=== PATIENT | female | born 1985 | race Caucasian/White ===

== ENCOUNTER 2019-09-16 13:27 | Emergency (ER) | payer SELFPAY ==
[2019-09-16 14:12] LABS: Bilirubin Negative (Negative); Blood, Urine Negative (Negative); Glucose, Urine (Dipstick) Negative (Negative); Leukocyte Small (Negative); Nitrite Negative (Negative); Protein, Urine (Dipstick) Negative (Neg-Trace); Urobilinogen 0.2 mg/dL (Less than 2)
[2019-09-16 14:17] LABS: Clarity Clear (Clear)
[2019-09-16 14:18] LABS: #Eosinphils 0.1 thou/uL (0.0-0.7); #Lymphocytes 1.6 thou/uL (1.20-3.40); #Monocytes 0.5 thou/uL (0.11-0.59); #Neutrophils 6.4 thou/uL (1.40-6.50); %Basophils 0.6 % (0.0-1.0); %Eosinophils 1.3 % (0.0-10.0); %Lymphocytes 17.9 % (21.0-51.0); %Monocytes 6.2 % (0.0-10.0); %Neutrophils 74.1 % (42.0-75.0); Hemoglobin 14.4 g/dL (12.0-16.0); Mean Corpuscular HGB CONC 32.9 g/dL (32.0-36.0); Mean Corpuscular Hemoglobin 28.1 pg (27.0-31.0); Mean Corpuscular Volume 85.3 fL (78.0-98.0); Mean Platelet Volume 8.3 fL (7.4-10.4); Platelet Count 210 thou/uL (130-400); Red Blood Cell (RBC) Count 5.14 mill/uL (4.20-5.40); White Blood Cell (WBC) Count 8.6 thou/uL (4.8-10.8)
[2019-09-16 14:23] LABS: RBC/HPF 0-3 HPF (0-3); Squamous Epithelial 0-3 HPF (0-3); WBC/HPF 0-3 HPF (0-3)
[2019-09-16 14:24] LABS: Bacteria/HPF Rare-Few HPF (None Seen)
[2019-09-16 14:41] LABS: ALT (SGPT) 9 U/L (8-55); AST (SGOT) 14 U/L (5-34); Albumin 4.5 g/dL (3.5-5.0); Alkaline Phosphatase 76 U/L (40-110); Anion Gap 11 mmol/L (10-20); BUN (Urea Nitrogen) 4 mg/dL (7.0-18.7); Bilirubin, Total 0.5 mg/dL (0.2-1.2); Calc. Creatinine Clearance 0 mL/min (70-130); Calcium 9.5 mg/dL (7.8-10.44); Carbon Dioxide 27 mmol/L (22-29); Chloride 105 mmol/L (98-107); Estimated GFR-MDRD 79; Globulin 2.6 g/dL (2.4-3.5); Glucose 105 mg/dL (70-105); Lipase 11 U/L (8-78); Potassium 3.5 mmol/L (3.5-5.1); Protein, Total 7.1 g/dL (6.0-8.3); Sodium 139 mmol/L (136-145)
[2019-09-16] MEDS ORDERED: Lidocaine Viscous Sol 2% 15 ml UD Cup ONE (15:46)
[2019-09-16] MEDS ORDERED: Mag-Al 1200 mg/1200 mg/30 ML UDCUP ONE (15:46)
--- NOTE | 2019-09-16 16:13 | ULT ---
Gallbladder ultrasound: Multiple grayscale images of right upper quadrant obtained according to protocol. INDICATION: Pain FINDINGS: Liver: Coarsened echotexture of the liver, with a length of 18 cm demonstrated Gallbladder: There is shadowing cholelithiasis Gallbladder wall: Normal. Cervantes's Sign: Negative Common bile duct is normal. Ascites: None IMPRESSION: Cholelithiasis. Coarsened echotexture of liver. This could relate to hepatic steatosis, or hepatocellular disease. Re commend correlation with liver function enzymes.
== END 2019-09-16 17:40 | disposition home or self-care (01) ==
LOC: ERS 13:27
DX: K80.20 Calculus of gallbladder without cholecystitis without obstruction (principal); Z87.891 Personal history of nicotine dependence
CPT/HCPCS: 36415; 76705; 80053; 81003; 81015; 83690; 85025

== ENCOUNTER 2019-11-11 12:30 | Day surgery (SDC) | payer SELFPAY ==
[~2019-11-11 12:30] MED LIST: Dexamethasone 20 MG/5 ML VIAL ONE; Glycopyrrolate 0.2 MG/ML 5 ML SYRINGE ONE; Lidocaine 1% PF 5 ML VIAL ONE; Ondansetron PF 4 MG/2 ML Vial ONE; PROPOFOL 200 MG/20 ML VIAL ONE; Rocuronium Bromide 10 MG/ML (10ML VIAL) ONE
[2019-11-11] MEDS ORDERED: Promethazine HCl 25 MG/ML VIAL ONE ×3 (13:07→21:39)
[2019-11-11] MEDS ORDERED: Fentanyl 100 MCG/2 ML VIAL ONE ×2 (13:18→20:28)
[2019-11-11] MEDS ORDERED: Ketorolac Tromethamine 30 MG/ML VIAL ONE ×3 (13:18→22:03)
[2019-11-11 13:24] LABS: #Eosinphils 0.1 thou/uL (0.0-0.7); #Lymphocytes 2.2 thou/uL (1.20-3.40); #Monocytes 0.4 thou/uL (0.11-0.59); #Neutrophils 5.2 thou/uL (1.40-6.50); %Basophils 0.3 % (0.0-1.0); %Eosinophils 1.8 % (0.0-10.0); %Lymphocytes 27.2 % (21.0-51.0); %Monocytes 5.3 % (0.0-10.0); %Neutrophils 65.4 % (42.0-75.0); Hemoglobin 15.3 g/dL (12.0-16.0); Mean Corpuscular HGB CONC 33.2 g/dL (32.0-36.0); Mean Corpuscular Hemoglobin 28.6 pg (27.0-31.0); Mean Corpuscular Volume 86.2 fL (78.0-98.0); Mean Platelet Volume 7.9 fL (7.4-10.4); Platelet Count 204 thou/uL (130-400); RBC Distribution Width 12.7 % (11.5-14.5); Red Blood Cell (RBC) Count 5.35 mill/uL (4.20-5.40)
[2019-11-11 13:35] LABS: BHCG - Serum Negative (NEGATIVE); Pregs Control Background? CLEAR/WHITE (CLR/WHITE); Pregs Control Bar Appear? YES (CONTROL BAR)
[2019-11-11 13:47] LABS: ALT (SGPT) Less than 7 U/L (8-55); AST (SGOT) 11 U/L (5-34); Albumin 4.5 g/dL (3.5-5.0); Alkaline Phosphatase 71 U/L (40-110); Anion Gap 14 mmol/L (10-20); BUN (Urea Nitrogen) 6 mg/dL (7.0-18.7); Bilirubin, Total 0.4 mg/dL (0.2-1.2); Calc. Creatinine Clearance 0 mL/min (70-130); Calcium 9.4 mg/dL (7.8-10.44); Carbon Dioxide 22 mmol/L (22-29); Chloride 108 mmol/L (98-107); Estimated GFR-MDRD 80; Globulin 2.5 g/dL (2.4-3.5); Glucose 141 mg/dL (70-105); Lipase 19 U/L (8-78); Potassium 3.8 mmol/L (3.5-5.1); Sodium 140 mmol/L (136-145)
[2019-11-11] MEDS ORDERED: Levofloxacin 500 mg/D5W 100 ml Premix Bag ONE (14:48)
[2019-11-11] MEDS ORDERED: Ondansetron PF 4 MG/2 ML Vial ONE ×2 (17:26→21:19)
--- NOTE | 2019-11-11 18:34 | HP ---
HISTORY OF PRESENT ILLNESS: A 34-year-old female with ongoing right upper quadrant pain with back radiation, nausea and vomiting for the past 6 months, has been to this hospital emergency room, [facility], visits this hospital emergency room again and evaluated by Dr. Kaminski. The patient has had ultrasound recently demonstrating gallstones, normal bile duct caliber, normal liver function tests, and they were normal again on this visit. She has intractable pain, cannot tolerate food or liquids and has a positive Cervantes sign. ALLERGIES: MORPHINE AND IODINE. TOBACCO: None. ALCOHOL: None. PAST SURGICAL HISTORY: C-sections. PAST MEDICAL HISTORY: Noncontributory. The patient is . Her [id number] accompanies her. REVIEW OF SYSTEMS: Ten-point noncontributory. PHYSICAL EXAMINATION: VITAL SIGNS: Weight 127 kg, blood pressure 120/80, pulse 62, respirations 16, temperature 97 degrees. HEAD, EARS EYES, NOSE AND THROAT: Unremarkable. LUNGS: Clear to auscultation. CARDIAC: Regular rate and rhythm without murmur or gallop. ABDOMEN: Soft. Tenderness in right upper quadrant. Positive Cervantes's. Obese. EXTREMITIES: Unremarkable. ASSESSMENT: Cholecystitis and cholelithiasis. PLAN: Laparoscopic video cholecystectomy. Risks and benefits discussed. She consents. Job ID: [id number]
[2019-11-11] MEDS ORDERED: Bupivacaine PF 0.5% 30 ML VIAL ONE (18:44)
[2019-11-11] MEDS ORDERED: Midazolam HCl 2 mg/2 ml Vial ONE (19:08)
[2019-11-11] MEDS ORDERED: Fentanyl 250 MCG/5 ML VIAL ONE (19:08)
[2019-11-11] MEDS ORDERED: Lidocaine 1% w/Epinephrine 1:100K 20 ML VIAL ONE (19:46)
[2019-11-11] MEDS ORDERED: HYDROmorphone 2 MG/ML VIAL SLOW IVP PRN (20:29)
[2019-11-11] MEDS ORDERED: Promethazine HCl 25 MG/ML VIAL IM PRN (20:29)
[2019-11-11] MEDS ORDERED: Ondansetron HCl/PF 4 MG/2 ML Vial IVP PRN (20:29)
[2019-11-11] MEDS ORDERED: Promethazine HCl 25 MG/ML VIAL SLOW IVP PRN (20:29)
[2019-11-11] MEDS ORDERED: diphenhydrAMINE 50 MG/ML VIAL ONE (21:56)
[2019-11-11] MEDS ORDERED: Metoclopramide HCl 10 MG/2 ML VIAL ONE (22:33)
[2019-11-11] MEDS ORDERED: Acetaminophen 500 MG TAB PO PRN (23:39)
[2019-11-11] MEDS ORDERED: traMADol HCl 50 MG TAB PO PRN ×2 (23:39→23:40)
[2019-11-11] MEDS ORDERED: Ondansetron ODT 4 MG TAB PO PRN (23:41)
[2019-11-12] MEDS: Acetaminophen 1,000 MG in Premix Bag 1 BAG IVPB PRN ×2 (00:12→05:56)
[2019-11-12] MEDS: Sodium Chloride 0.9% 1,000 ML IV SCH ×4 (00:12→22:00)
[2019-11-12 00:36] VITALS: BMI 36.1
[2019-11-12] MEDS ORDERED: Ondansetron ODT 4 MG TAB PO PRN (00:43)
[2019-11-12] MEDS: Ondansetron PF 4 MG/2 ML Vial SLOW IVP PRN ×2 (00:56→05:56)
[2019-11-12] MEDS ORDERED: Promethazine HCl 25 MG SUPP PR PRN (01:20)
[2019-11-12] MEDS ORDERED: Promethazine 25 MG TAB PO PRN (01:20)
[2019-11-12] MEDS: Promethazine HCl 25 MG/ML VIAL IM PRN ×3 (01:42→17:04)
--- NOTE | 2019-11-12 02:10 | OP ---
DATE OF PROCEDURE: 11/11/2019 PREOPERATIVE DIAGNOSES: Chronic cholecystitis, cholelithiasis, acute cholecystitis, and obesity. POSTOPERATIVE DIAGNOSES: Chronic cholecystitis, cholelithiasis, acute cholecystitis, and obesity. PROCEDURE PERFORMED: Laparoscopic video cholecystectomy. ANESTHESIA: General, local 0.5% Marcaine with epinephrine 30 mL. DESCRIPTION OF PROCEDURE: Patient was taken to the operating room, where under general anesthesia, abdomen was prepared with ChloraPrep and draped in routine fashion local anesthetic was infiltrated in the skin and subcutaneous tissue at each port site. Supraumbilical incision was made. Pneumoperitoneum to 15 mmHg obtained with a Veress needle, replaced with a 5-port laparoscope inserted. Right subxiphoid incision was made and 11 port placed, right subcostal incision was made at midclavicular entrance line and 5-port placed. Liver appeared to be normal. Gallbladder was acutely inflamed. Omental adhesions taken down with the cautery. Fundus was grasped at the cephalad. Infundibulum was grasped and retracted laterally. Cystic artery and duct dissected free. Critical view obtained. Cystic artery and duct double clipped proximally, divided, gallbladder dissected free from liver bed obtaining good hemostasis prior to division of the final peritoneal attachments. Good hemostasis obtained with cautery. Gallbladder and contents removed. Nik was placed in the liver bed. Hemostasis noted. Irrigant and pneumoperitoneum evacuated. All this was removed. All skin incisions were approximated with interrupted subdermal 4-0 Monocryl and [place] glue applied. Job ID: [id number]
[2019-11-12] MEDS: Metoclopramide HCl 10 MG/2 ML VIAL IVP PRN ×2 (04:03→10:24)
[2019-11-12] MEDS: Ketorolac Tromethamine 30 MG/ML VIAL IVP PRN ×3 (04:03→20:44)
[2019-11-12 05:53] LABS: ALT (SGPT) 19 U/L (8-55); AST (SGOT) 42 U/L (5-34); Albumin 3.7 g/dL (3.5-5.0); Alkaline Phosphatase 62 U/L (40-110); Anion Gap 13 mmol/L (10-20); BUN (Urea Nitrogen) 5 mg/dL (7.0-18.7); Bilirubin, Total 0.6 mg/dL (0.2-1.2); Calc. Creatinine Clearance 193 mL/min (70-130); Calcium 8.5 mg/dL (7.8-10.44); Carbon Dioxide 16 mmol/L (22-29); Chloride 109 mmol/L (98-107); Estimated GFR-MDRD 87; Globulin 2.6 g/dL (2.4-3.5); Glucose 142 mg/dL (70-105); Lipase Less than 4 U/L (8-78); Potassium 4.1 mmol/L (3.5-5.1); Protein, Total 6.3 g/dL (6.0-8.3); Sodium 134 mmol/L (136-145)
[2019-11-12 06:13] LABS: #Lymphocytes 0.6 thou/uL (1.20-3.40); #Monocytes 0.7 thou/uL (0.11-0.59); #Neutrophils 14.6 thou/uL (1.40-6.50); %Basophils 0.1 % (0.0-1.0); %Eosinophils 0.1 % (0.0-10.0); %Lymphocytes 3.6 % (21.0-51.0); %Monocytes 4.1 % (0.0-10.0); Hemoglobin 13.8 g/dL (12.0-16.0); Mean Corpuscular Hemoglobin 26.5 pg (27.0-31.0); Mean Corpuscular Volume 88.2 fL (78.0-98.0); Mean Platelet Volume 9.6 fL (7.4-10.4); Platelet Count 108 thou/uL (130-400); Platelet Morphology Comment Appears Decreased; RBC Distribution Width 12.7 % (11.5-14.5); White Blood Cell (WBC) Count 15.9 thou/uL (4.8-10.8)
[2019-11-12] MEDS ORDERED: Mag-Al 1200 mg/1200 mg/30 ML UDCUP PO PRN (08:18)
[2019-11-12] MEDS: Fentanyl 100 MCG/2 ML VIAL SLOW IVP PRN ×2 (09:23→15:28)
[2019-11-12] MEDS ORDERED: diphenhydrAMINE 50 MG/ML VIAL IVP PRN (10:33)
[2019-11-12] MEDS ORDERED: diphenhydrAMINE 50 MG/ML VIAL IVP SCH (10:45)
[2019-11-12] MEDS ORDERED: Scopolamine 1.5 mg/72 hour Patch TD SCH (10:45)
[2019-11-12] MEDS ORDERED: Bisacodyl 10 MG SUPP PR PRN (16:09)
--- NOTE | 2019-11-12 17:16 | PRG ---
DATE OF SERVICE: 11/12/2019 SUBJECTIVE: Stefania Rodríguez is doing well today. She was kept not because of intractable nausea and vomiting. She has still had problems with that this morning, although was somewhat improved. She is ready to try her liquids. She has been given Phenergan, Reglan, Zofran, Benadryl, and scopolamine patch. This morning, her white count is 15, hemoglobin 13. Basic metabolic profile is normal. Liver function tests are normal. She still complains of abdominal pain. OBJECTIVE: VITAL SIGNS: Temperature 98.9, pulse 67, blood pressure 134/88. LUNGS: Clear to auscultation. CARDIAC: Regular rate and rhythm without murmur or gallop. ABDOMEN: Postoperative tenderness, surgical wounds, trocar sites look good. ASSESSMENT AND PLAN: Post cholecystectomy, nausea, vomiting. Liver function tests are normal. There are no signs of cholecystectomy complications. Continue observation today. Hopefully, she can be discharged home tomorrow. Job ID: [id number]
[2019-11-12] MEDS ORDERED: Enoxaparin Sodium 40 MG/0.4 ML SYRINGE SC SCH (21:00)
[2019-11-13 05:47] LABS: #Lymphocytes 2.7 thou/uL (1.20-3.40); #Monocytes 0.7 thou/uL (0.11-0.59); #Neutrophils 4.7 thou/uL (1.40-6.50); %Basophils 0.1 % (0.0-1.0); %Eosinophils 0.4 % (0.0-10.0); %Lymphocytes 33.9 % (21.0-51.0); %Neutrophils 57.5 % (42.0-75.0); Mean Corpuscular HGB CONC 31.9 g/dL (32.0-36.0); Mean Corpuscular Hemoglobin 27.9 pg (27.0-31.0); Mean Corpuscular Volume 87.4 fL (78.0-98.0); Mean Platelet Volume 8.6 fL (7.4-10.4); Platelet Count 167 thou/uL (130-400); RBC Distribution Width 12.8 % (11.5-14.5); Red Blood Cell (RBC) Count 3.95 mill/uL (4.20-5.40); White Blood Cell (WBC) Count 8.1 thou/uL (4.8-10.8)
[2019-11-13 05:52] LABS: ALT (SGPT) 15 U/L (8-55); AST (SGOT) 22 U/L (5-34); Albumin 3.2 g/dL (3.5-5.0); Alkaline Phosphatase 43 U/L (40-110); Anion Gap 8 mmol/L (10-20); BUN (Urea Nitrogen) 6 mg/dL (7.0-18.7); Bilirubin, Total 0.4 mg/dL (0.2-1.2); Calc. Creatinine Clearance 186 mL/min (70-130); Calcium 8.2 mg/dL (7.8-10.44); Carbon Dioxide 25 mmol/L (22-29); Chloride 109 mmol/L (98-107); Estimated GFR-MDRD 83; Glucose 87 mg/dL (70-105); Potassium 3.3 mmol/L (3.5-5.1); Protein, Total 5.2 g/dL (6.0-8.3); Sodium 139 mmol/L (136-145)
--- NOTE | 2019-11-13 13:27 | DIS ---
DATE OF ADMISSION: 11/11/2019 DATE OF DISCHARGE: 11/13/2019 DIAGNOSES: 1. Cholecystitis. 2. Cholelithiasis. 3. Obesity. 4. Postoperative nausea and vomiting requiring postoperative admission. DISCHARGE INSTRUCTIONS: Diet as tolerated. Lifting as tolerated. Follow up in the office p.r.n. problems. No diet restrictions. No activity restriction. Shower and bathe p.r.n. Tylenol, Motrin, Ultram p.r.n. pain. Ultram prescription given, #25, one refill. HISTORY: This is a 34-year-old female, who has been in [facility] recently, and after that, [facility], and now returned to [facility]. All times, ultrasounds revealing cholelithiasis, normal bile duct caliber, normal liver function test. She is having ongoing pain, cannot tolerate liquids, and was kept in the hospital undergoing laparoscopic cholecystectomy to be discharged home as outpatient and intractable nausea and vomiting, requiring hospitalization 2 days postoperatively to resolve this. By the time of this dictation, she is doing well, tolerating her diet. Liver function tests and hemoglobin remained normal. She is released at this time to follow up with me as needed. Diet and activity as tolerated. Job ID: [id number]
[2019-11-13 15:12] VITALS: BP 128/89; TEMP 97.9
== END 2019-11-13 14:28 | disposition home or self-care (01) ==
LOC: ERS 12:30 → SDC/OP 18:03 → SURG A 23:29 → SDC/OP 11-13 14:28
PROVIDERS: ATTEND Specialist
PROC: 0FT44ZZ Resection of Gallbladder, Percutaneous Endoscopic Approach (ICD-10-PCS; principal; 2019-11-11)
DX: K80.12 Calculus of gallbladder with acute and chronic cholecystitis without obstruction (principal); K82.8 Other specified diseases of gallbladder; K91.89 Other postprocedural complications and disorders of digestive system; E66.9 Obesity, unspecified; Z68.36 Body mass index [BMI] 36.0-36.9, adult; Z88.5 Allergy status to narcotic agent; Z91.013 Allergy to seafood; Z91.041 Radiographic dye allergy status
CPT/HCPCS: 36415; 80053; 83690; 84703; 85025; 88304; 96361; 96365; 96367; 96375; J0131; J1100; J1200; J1650; J1885; J1956; J2001; J2250; J2405; J2550; J2704; J2765; J3010; S0020

== ENCOUNTER 2020-01-28 12:28 | Emergency (ER) | payer SELFPAY ==
--- NOTE | 2020-01-28 13:38 | RAD ---
PA AND LATERAL VIEWS CHEST: Date: 01/28/2020 HISTORY: Cough. FINDINGS: The heart size is normal. The lungs are expanded without lobar consolidation, pneumothoraces, or pleu ral effusions. No acute osseous abnormalities are seen. IMPRESSION: No radiographic evidence of acute cardiopulmonary process. POS: [facility]
[2020-01-28] MEDS ORDERED: Ondansetron ODT 4 MG TAB ONE (14:10)
[2020-01-28] MEDS ORDERED: Acetaminophen 500 MG TAB ONE (14:20)
== END 2020-01-28 16:08 | disposition home or self-care (01) ==
LOC: ERS 12:28
DX: J06.9 Acute upper respiratory infection, unspecified (principal); R11.0 Nausea; Z87.891 Personal history of nicotine dependence
CPT/HCPCS: 71046; 87633; 87804; Q0162

== ENCOUNTER 2020-02-01 04:30 | Emergency (ER) | payer SELFPAY ==
[2020-02-01] MEDS ORDERED: Metoclopramide HCl 10 MG/2 ML VIAL ONE (05:07)
== END 2020-02-01 06:04 | disposition home or self-care (01) ==
LOC: ERS 04:30
DX: J11.1 Influenza due to unidentified influenza virus with other respiratory manifestations (principal); R11.2 Nausea with vomiting, unspecified; Z87.891 Personal history of nicotine dependence
CPT/HCPCS: 96372; 99284; J2765

== ENCOUNTER 2020-02-01 22:33 | Inpatient (IN) | payer SELFPAY ==
--- NOTE | 2020-02-01 23:50 | HP ---
TIME: 2254 hours. CHIEF COMPLAINT: This is a patient who I just spoke with Dr. Francisco in the emergency room at [facility] ER, whom he is placing for direct admission as a five week patient with nausea and vomiting. HISTORY OF PRESENT ILLNESS: This is a 34-year-old, G3, P2 with a history of 2 previous C-sections, who by ultrasound today, according to the ER physician at [facility], is five weeks and 4 days by ultrasound. She presented there for nausea and vomiting. She states that she was given recently a prescription for Reglan suppositories, but she has not been able to get them filled, so she presented again to [facility] with the same complaint of nausea and vomiting. She denies any vaginal bleeding or other issues. REVIEW OF SYSTEMS: Per the ER physician, she had no other review of systems. (Note; I discussed this case with Dr. Francisco after evaluating her previous note in [facility] here in [facility], from 01/28/2020. On 01/28/2020, this patient tested positive for influenza A. The rapid flu swab was negative, but the respiratory panel was positive for influenza A. I was not told this at the initial check out/Transfer Center call with Dr. Francisco. I did call him back and asked him about respiratory symptoms. There is a note from 01/28/2020 where it states that she was awaiting COVID testing, but this was not back yet. I was not told this initially, but I did call back the ER physician and reviewed this vital part of the history with him. This was important since we will have to place the patient in isolation due to her recent flu diagnosis). PAST MEDICAL HISTORY: Noncontributory. PAST OB HISTORY: She is G3, P2 with 2 previous C-sections. ALLERGIES: ARE TO IODINE, MORPHINE, AND SHELLFISH. PHYSICAL EXAMINATION: According to the ER physician (as the patient is not yet here), she is afebrile and normotensive. She is in no acute distress and there is no vaginal bleeding by his report. DIAGNOSTIC STUDIES: Ultrasound reveals a of five weeks and 4 days by ultrasound today. Urine shows moderate ketones. Complete metabolic profile shows normal liver function tests and a creatinine of 1.0. ASSESSMENT: This is a 34-year-old multigravida, who is at five weeks and 4 days by ultrasound with possible nausea, vomiting of , recent diagnosis of the flu just four days ago (influenza A). The issue with the flu was not discussed with me originally by the ER physician, but I did call that provider back and discussed the case. We will put her in respiratory precautions just to be safe. I have also requested this from the transfer center. It is important to note that she states that she had a COVID test as well, but that does not seem to be back. PLAN: 1. We will admit the patient for IV hydration. 2. I have ordered vitamin B6 and Phenergan. 3. I did not order Reglan at this time to avoid the Phenergan/Reglan interaction, but we may add Reglan if necessary if the nausea and vomiting are not better by the vitamin B6 and Phenergan. 4. The patient has not yet arrived here, but I am doing the H and P based on the information provided to me by Dr. Francisco at [facility]. I will evaluate the patient when she gets here. This H and P are being done before based on the information provided to me as a preparation for her arrival. 5. This patient was previously seen by Dr. Banegas, but according to Dr. Banegas, she has not yet established care for this , so we will assume care for now. Job ID: [id number]
[2020-02-02 00:11] VITALS: BMI 38.0
[2020-02-02] MEDS: Lactated Ringer's 1,000 ML IV SCH ×3 (00:30→15:32)
--- NOTE | 2020-02-02 00:42 | PDOC.EVN ---
Event Note - Event Note Event Note: Patient now in Bed 329 I have seen the patient at bedside and care reviewed. She states her was COVID negative. Continue with plan as per H&P
[2020-02-02] MEDS ORDERED: Metoclopramide HCl 10 MG/2 ML VIAL IVP SCH (06:00)
--- NOTE | 2020-02-02 06:55 | PDOC.EVN ---
Event Note - Event Note Event Note: HD 1 Admitted late last PM DX: 5 weeks OB, N/V...recent Influenza A (5 days ago) S. I walked in the room but the patient was sleeping, so I asked Lianet, her RN , how she was doing. RN states feels better, and the patient was able to hold down ice chips and water. O. Systolic BPs noted at 140s x 2, but last one was in the 120s...follow.Afebrile with TMax 99 Labs at [facility]...no labs here as they were normal there. A/P: 5 weeks OB, N/V...previously tested for COVID (results pending) but was DX with Influenza A on full respiratory panel. Plan: continue IVFs 2. Vit B6 3. Phenergan 4. Reg diet challange
[2020-02-02] MEDS: pyridOXINE 50 MG (B6) TAB PO SCH ×2 (09:20→20:44)
[2020-02-02] MEDS: Famotidine 20 MG TAB PO SCH ×2 (09:20→20:44)
[2020-02-02] MEDS: Promethazine HCl 25 MG/ML VIAL IM/IV PRN ×2 (09:27→15:32)
[2020-02-02] MEDS ORDERED: Doxylamine 25 MG TAB PO PRN (17:36)
[2020-02-02] MEDS ORDERED: FLU VACC QS2019-20(6MOS UP)/PF 60 MCG/0.5 ML SYRINGE IM ONE (21:00)
[2020-02-02] MEDS ORDERED: Doxylamine 25 MG TAB PO SCH ×2 (21:00)
[2020-02-03] MEDS: Lactated Ringer's 1,000 ML IV SCH ×2 (00:42→08:42)
[2020-02-03] MEDS: Promethazine HCl 25 MG/ML VIAL IM/IV PRN (01:57)
[2020-02-03 07:31] VITALS: BP 109/57; TEMP 98.2
--- NOTE | 2020-02-03 07:38 | PDOC.BPN ---
- Brief Progress Note Patient doing well this morning. Has tolerated PO, both solids and liquids. Cleared for d/c home today and told to follow up with Dr. Banegas to establish care. Given Rx for pepcid, pyridoxine, and phenergan.
[2020-02-03] MEDS: Famotidine 20 MG TAB PO SCH (08:43)
[2020-02-03] MEDS: pyridOXINE 50 MG (B6) TAB PO SCH (08:43)
[2020-02-03] MEDS ORDERED: Doxylamine 25 MG TAB PO SCH (09:00)
== END 2020-02-03 10:30 | disposition home or self-care (01) | DRG 833 ==
LOC: 3SW 23:49 → OBSVTOIN 23:49
PROVIDERS: ADMIT Obstetrics & Gynecology; ATTEND Obstetrics & Gynecology
DX: O26.891 Other specified pregnancy related conditions, first trimester (principal); R11.2 Nausea with vomiting, unspecified; Z91.041 Radiographic dye allergy status; Z88.5 Allergy status to narcotic agent; Z91.013 Allergy to seafood
CPT/HCPCS: J2550

== ENCOUNTER 2020-02-04 10:42 | Emergency (ER) | payer SELFPAY ==
[2020-02-04 11:34] LABS: #Eosinphils 0.1 thou/uL (0.0-0.7); #Lymphocytes 1.7 thou/uL (1.20-3.40); #Monocytes 0.4 thou/uL (0.11-0.59); #Neutrophils 3.4 thou/uL (1.40-6.50); %Basophils 0.4 % (0.0-1.0); %Eosinophils 1.4 % (0.0-10.0); %Lymphocytes 30.7 % (21.0-51.0); %Monocytes 6.6 % (0.0-10.0); Hemoglobin 13.5 g/dL (12.0-16.0); Mean Corpuscular HGB CONC 32.8 g/dL (32.0-36.0); Mean Corpuscular Hemoglobin 27.8 pg (27.0-31.0); Mean Corpuscular Volume 84.7 fL (78.0-98.0); Mean Platelet Volume 8.5 fL (7.4-10.4); Platelet Count 134 thou/uL (130-400); RBC Distribution Width 12.2 % (11.5-14.5); Red Blood Cell (RBC) Count 4.84 mill/uL (4.20-5.40); White Blood Cell (WBC) Count 5.6 thou/uL (4.8-10.8)
[2020-02-04 11:47] LABS: Anion Gap 11 mmol/L (10-20); BUN (Urea Nitrogen) 5 mg/dL (7.0-18.7); Calc. Creatinine Clearance 0 mL/min (70-130); Calcium 8.7 mg/dL (7.8-10.44); Carbon Dioxide 28 mmol/L (22-29); Chloride 100 mmol/L (98-107); Estimated GFR-MDRD Greater than 90; Glucose 87 mg/dL (70-105); Potassium 3.1 mmol/L (3.5-5.1); Sodium 136 mmol/L (136-145)
[2020-02-04] MEDS ORDERED: Potassium Chloride 20 MEQ TAB ONE (12:21)
--- NOTE | 2020-02-04 12:29 | ULT ---
Pelvic sonogram transabdominal and transvaginal imaging with duplex evaluation HISTORY: Vaginal bleeding. FINDINGS: Urinary bladder is decompressed. Uterus has a heterogeneous echotexture and is 8.1 cm lengt h. Endometrium is 1.0 cm. Centrally within the cervix is an oval cystic structure measuring 1.1 cm length by 0.6 cm width. When measured as a gestational sac, it correlates with 5 weeks 3 days gestati onal age. No internal content evident. No free fluid in the pelvis. Dominant follicle of the left ovary measures up to 2.7 cm. Right ovary has normal appearance. Good co angela and spectral Doppler flow within each ovary. IMPRESSION: Normal intrauterine not seen. Cystic structure within the cervix may represent remnant of a gestational sac, indicating a spontaneous in progress.
== END 2020-02-04 12:36 | disposition home or self-care (01) ==
LOC: ERS 10:42
DX: O20.0 Threatened abortion (principal); Z87.891 Personal history of nicotine dependence; Z3A.09 9 weeks gestation of pregnancy
CPT/HCPCS: 36415; 76856; 80048; 84702; 85025

== ENCOUNTER 2020-04-10 20:33 | Inpatient (IN) | payer BC, SELFPAY ==
[2020-04-10 21:21] LABS: #Lymphocytes 0.7 thou/uL (1.20-3.40); #Monocytes 0.7 thou/uL (0.11-0.59); #Neutrophils 10.3 thou/uL (1.40-6.50); %Basophils 0.1 % (0.0-1.0); %Eosinophils 0.3 % (0.0-10.0); %Lymphocytes 5.5 % (21.0-51.0); %Monocytes 5.6 % (0.0-10.0); %Neutrophils 88.6 % (42.0-75.0); Hemoglobin 14.7 g/dL (12.0-16.0); Mean Corpuscular HGB CONC 32.8 g/dL (32.0-36.0); Mean Corpuscular Volume 88.4 fL (78.0-98.0); Mean Platelet Volume 8.7 fL (7.4-10.4); Platelet Count 178 thou/uL (130-400); RBC Distribution Width 12.5 % (11.5-14.5); Red Blood Cell (RBC) Count 5.06 mill/uL (4.20-5.40); White Blood Cell (WBC) Count 11.7 thou/uL (4.8-10.8)
[2020-04-10 21:21] LABS: Bacteria/HPF 4+ HPF (None Seen); Bilirubin Negative (Negative); Blood, Urine 2+ (Negative); Clarity Extra Turbid (Clear); Glucose, Urine (Dipstick) Normal (Negative); Leukocyte 500 Leu/uL (Negative); Mucous/LPF 1+ LPF (<2+); Nitrite 2+ (Negative); Pregnancy Test - Urine (BHCG) Negative (Negative); Pregu Control Background? CLEAR/WHITE (CLR/WHITE); Pregu Control Bar Appear? YES (CONTROL BAR); Protein, Urine (Dipstick) 100 mg/dL (Neg-Trace); RBC/HPF 21-50 HPF (0-3); Renal Epithelial 0-3 HPF (None Seen); Specific Gravity 1.015 (1.002-1.036); Urobilinogen Normal mg/dL (Less than 2); WBC/HPF Greater than 50 HPF (0-3)
[2020-04-10 21:44] LABS: ALT (SGPT) 7 U/L (8-55); AST (SGOT) 13 U/L (5-34); Albumin 4.5 g/dL (3.5-5.0); Alkaline Phosphatase 80 U/L (40-110); Anion Gap 13 mmol/L (10-20); BUN (Urea Nitrogen) 7 mg/dL (7.0-18.7); Bilirubin, Total 1.5 mg/dL (0.2-1.2); Calc. Creatinine Clearance 0 mL/min (70-130); Calcium 9.4 mg/dL (7.8-10.44); Carbon Dioxide 24 mmol/L (22-29); Chloride 106 mmol/L (98-107); Estimated GFR-MDRD 63; Glucose 134 mg/dL (70-105); Lipase 7 U/L (8-78); Potassium 3.2 mmol/L (3.5-5.1); Protein, Total 7.5 g/dL (6.0-8.3); Sodium 140 mmol/L (136-145)
[2020-04-10] MEDS ORDERED: Ondansetron PF 4 MG/2 ML Vial ONE (21:52)
[2020-04-10] MEDS ORDERED: cefTRIAXone\\ROCEPHIN 2 GM VIAL ONE (22:04)
[2020-04-10] MEDS ORDERED: Ketorolac Tromethamine 30 MG/ML VIAL ONE (22:04)
[2020-04-10] MEDS ORDERED: Vancomycin 1 GM/200 ML BAG ONE (23:06)
[2020-04-11] MEDS ORDERED: Senokot S 8.6-50 MG TAB PO PRN (00:51)
[2020-04-11] MEDS ORDERED: Ondansetron ODT 4 MG TAB PO PRN (00:51)
--- NOTE | 2020-04-11 01:03 | PDOC.HHP ---
Hospitalist HPI - History of Present Illness Urinary symptoms History of Present Illness: PCP: Dr. Whitley The patient is a 34/f with no significant PMH that presents for the above complaint. The patient reports developing urinary frequency, urgency and bladder pressure over the past 3-4 days. She developed right flank pain with associated nausea, vomiting and chills this morning. She tried to treat her symptoms with Azo OTC and water, with no improvement of symptoms. Denies any hemoptysis or diarrhea. Denies any vaginal discharge, although she reports that she is about to start her menstrual period. Denies any chest pain or sob. ED Course: VS 99.2F, 131/89, 115, 20, 97% RA, Pain 10/10 UA Bacteria 4+, leukocyte esterase 500, WBC > 50, nitrite positive LA 1.1 WBC 11.7 K 3.2 Bili 1.5 AST 13 ALT 7 ALP 80 Given: 1L NS, rocephin IVPB, zofran and toradol Allergies: iodine and morphine Home Medications: None Hospitalist ROS - Review of Systems Constitutional: reports: chills, malaise Eyes: denies: pain, vision change, conjunctivae inflammation, eyelid inflammation, redness, other ENT: denies: ear pain, ear discharge, nose pain, nose discharge, nose congestion , mouth pain, mouth swelling, throat pain, throat swelling, other Respiratory: denies: cough, dry, shortness of breath, hemoptysis, SOB with excertion, pleuritic pain, sputum, wheezing, other Cardiovascular: reports: light headedness Gastrointestinal: reports: nausea, vomiting, abdominal pain (bladder pressure). denies: diarrhea, constipation, melena, hematochezia Genitourinary: reports: frequency, other (urgency). denies: dysuria Musculoskeletal: reports: back pain (right flank pain). denies: shoulder pain Skin: denies: rash, bruising Neurological: denies: weakness, numbness, incoordination, change in speech Hospitalist History - Past Medical History Source: patient Cardiac: reports: no pertinent history Pulmonary: reports: no pertinent history Gastrointestinal: reports: no pertinent history - Past Surgical History Past Surgical History: reports: Cholecystectomy, (x2) - Family History Family History: reports: no pertinent history Other Family History: non contributory to this case - Social History Smoking Status: Former smoker (Quit 1 year ago) Alcohol: reports: Rare Drugs: reports: none Living Situation: With Family 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, works at [employer] Activity level: independent ambulation - Exam General Appearance: NAD, awake alert Eye: anicteric sclera ENT: normocephalic atraumatic Neck: supple, no JVD Heart: RRR, no murmur, no gallops, no rubs, normal peripheral pulses Respiratory: CTAB, no wheezes, no rales, no ronchi, no tachypnea Gastrointestinal: soft, non-distended, normal bowel sounds, no guarding, no rigidity, tender to palpation (mild tenderness to palpation suprapubic region) Gastrointestinal - other findings: RCVAT Extremities: no cyanosis, no edema Neurological: no focal deficits Psychiatric: normal affect, A&O x 3 Psychiatric - other findings: non toxic, uncomfortable appearing Hospitalist Results - Labs Result Diagrams: 04/10/20 21:03 04/10/20 21:03 Lab results: WBC 11.7 thou/uL (4.8-10.8) H 04/10/20 21:03 Hgb 14.7 g/dL (12.0-16.0) 04/10/20 21:03 Hct 44.7 % (36.0-47.0) 04/10/20 21:03 MCV 88.4 fL (78.0-98.0) 04/10/20 21:03 Plt Count 178 thou/uL (130-400) 04/10/20 21:03 Neutrophils % 88.6 % (42.0-75.0) H 04/10/20 21:03 Sodium 140 mmol/L (136-145) 04/10/20 21:03 Potassium 3.2 mmol/L (3.5-5.1) L 04/10/20 21:03 Chloride 106 mmol/L (98-107) 04/10/20 21:03 Carbon Dioxide 24 mmol/L (22-29) 04/10/20 21:03 BUN 7 mg/dL (7.0-18.7) 04/10/20 21:03 Creatinine 1.00 mg/dL (0.6-1.1) 04/10/20 21:03 Glucose 134 mg/dL (70-105) H 04/10/20 21:03 Lactic Acid 1.1 mmol/L (0.5-2.2) 04/10/20 21:37 Calcium 9.4 mg/dL (7.8-10.44) 04/10/20 21:03 Total Bilirubin 1.5 mg/dL (0.2-1.2) H 04/10/20 21:03 AST 13 U/L (5-34) 04/10/20 21:03 ALT 7 U/L (8-55) L 04/10/20 21:03 Alkaline Phosphatase 80 U/L (40-110) 04/10/20 21:03 Serum Total Protein 7.5 g/dL (6.0-8.3) 04/10/20 21:03 Albumin 4.5 g/dL (3.5-5.0) 04/10/20 21:03 Lipase 7 U/L (8-78) L 04/10/20 21:03 Urine Ketones Negative mg/dL (Negative) 04/10/20 20:48 Urine Blood 2+ (Negative) A 04/10/20 20:48 Urine Nitrite 2+ (Negative) A 04/10/20 20:48 Ur Leukocyte Esterase 500 Tirso/uL (Negative) A 04/10/20 20:48 Urine RBC 21-50 HPF (0-3) A 04/10/20 20:48 Urine WBC Greater than 50 HPF (0-3) A 04/10/20 20:48 Ur Squamous Epith Cells 7-10 HPF (0-3) A 04/10/20 20:48 Urine Bacteria 4+ HPF (None Seen) A 04/10/20 20:48 Hospitalist H&P A/P - Problem (1) Pyelonephritis Code(s): N12 - TUBULO-INTERSTITIAL NEPHRITIS, NOT SPCF ACUTE OR CHRONIC Status: Acute Assessment and Plan: Admit to medical floor, inpatient status Expected length of stay at least 2 midnights Presented tachycardic with WBCs 11.7, LA 1.1 UA and PE consistent for pyelonephritis Patient reports significant improvement after 1L IVF, rocephin, toradol, zofran Continue IVF and rocephin IVPB Continue toradol and zofran prn Blood and urine cultures pending (2) Sepsis Code(s): A41.9 - SEPSIS, UNSPECIFIED ORGANISM Status: Acute Assessment and Plan: Likely secondary to problem #1 (3) Hypokalemia Code(s): E87.6 - HYPOKALEMIA Status: Acute Assessment and Plan: Mild, 3.2 Will replace with 40mEq IVPB Will check mag level Recheck level in am - Plan Plan: Consult PT LMWH DVT prophylaxis Pepcid for GI prophylaxis Full Code MPOA is Laura brown at [phone] Rm
[2020-04-11 02:26] VITALS: BMI 40.5
[2020-04-11] MEDS: Sodium Chloride 0.9% 1,000 ML IV SCH ×4 (02:32→23:29)
[2020-04-11] MEDS: Potassium Chloride 20 MEQ in Premix Bag 1 BAG IVPB SCH ×2 (02:36→03:30)
[2020-04-11] MEDS: Acetaminophen 325 MG TAB PO PRN ×2 (02:36→23:28)
[2020-04-11 06:30] LABS: #Lymphocytes 1.7 thou/uL (1.20-3.40); #Monocytes 0.8 thou/uL (0.11-0.59); #Neutrophils 5.7 thou/uL (1.40-6.50); %Basophils 0.2 % (0.0-1.0); %Eosinophils 0.5 % (0.0-10.0); %Lymphocytes 20.8 % (21.0-51.0); %Monocytes 10.2 % (0.0-10.0); %Neutrophils 68.4 % (42.0-75.0); Hemoglobin 12.3 g/dL (12.0-16.0); Mean Corpuscular HGB CONC 33.3 g/dL (32.0-36.0); Mean Corpuscular Hemoglobin 29.5 pg (27.0-31.0); Mean Corpuscular Volume 88.6 fL (78.0-98.0); Platelet Count 165 thou/uL (130-400); RBC Distribution Width 12.4 % (11.5-14.5); Red Blood Cell (RBC) Count 4.17 mill/uL (4.20-5.40); White Blood Cell (WBC) Count 8.3 thou/uL (4.8-10.8)
[2020-04-11 06:59] LABS: ALT (SGPT) Less than 7 U/L (8-55); AST (SGOT) 11 U/L (5-34); Albumin 3.7 g/dL (3.5-5.0); Alkaline Phosphatase 62 U/L (40-110); Anion Gap 11 mmol/L (10-20); BUN (Urea Nitrogen) 8 mg/dL (7.0-18.7); Bilirubin, Total 0.6 mg/dL (0.2-1.2); Calc. Creatinine Clearance 181 mL/min (70-130); Calcium 8.2 mg/dL (7.8-10.44); Carbon Dioxide 21 mmol/L (22-29); Chloride 109 mmol/L (98-107); Estimated GFR-MDRD 81; Globulin 2.3 g/dL (2.4-3.5); Glucose 104 mg/dL (70-105); Potassium 3.2 mmol/L (3.5-5.1); Sodium 138 mmol/L (136-145)
[2020-04-11] MEDS: Potassium Chloride 20 MEQ TAB PO SCH ×2 (08:51→09:36)
[2020-04-11] MEDS: Ketorolac Tromethamine 30 MG/ML VIAL IVP PRN (08:52)
[2020-04-11] MEDS: Ondansetron PF 4 MG/2 ML Vial IVP PRN ×2 (08:52→20:54)
[2020-04-11] MEDS: Enoxaparin Sodium 40 MG/0.4 ML SYRINGE SC SCH (08:52)
[2020-04-11] MEDS: Famotidine/PF 20 mg/2ml Vial SLOW IVP SCH ×2 (08:53→20:54)
[2020-04-11] MEDS: Famotidine 20 MG TAB PO SCH ×2 (09:12→20:54)
[2020-04-11] MEDS ORDERED: Potassium Chloride 20 MEQ TAB PO SCH ×3 (09:15→16:00)
[2020-04-11] MEDS ORDERED: cefTRIAXone\\ROCEPHIN 2 GM in Sodium Chloride 0.9% 100 ML IVPB SCH (22:00)
[2020-04-12 05:14] LABS: #Eosinphils 0.1 thou/uL (0.0-0.7); #Lymphocytes 1.5 thou/uL (1.20-3.40); #Monocytes 0.7 thou/uL (0.11-0.59); #Neutrophils 3.2 thou/uL (1.40-6.50); %Basophils 0.6 % (0.0-1.0); %Eosinophils 1.7 % (0.0-10.0); %Monocytes 12.2 % (0.0-10.0); %Neutrophils 58.4 % (42.0-75.0); Mean Corpuscular HGB CONC 32.1 g/dL (32.0-36.0); Mean Corpuscular Hemoglobin 28.9 pg (27.0-31.0); Mean Corpuscular Volume 90.1 fL (78.0-98.0); Mean Platelet Volume 9.2 fL (7.4-10.4); Platelet Count 137 thou/uL (130-400); RBC Distribution Width 12.4 % (11.5-14.5); Red Blood Cell (RBC) Count 4.14 mill/uL (4.20-5.40); White Blood Cell (WBC) Count 5.5 thou/uL (4.8-10.8)
[2020-04-12 05:37] LABS: Anion Gap 13 mmol/L (10-20); BUN (Urea Nitrogen) 5 mg/dL (7.0-18.7); Calc. Creatinine Clearance 198 mL/min (70-130); Calcium 7.8 mg/dL (7.8-10.44); Carbon Dioxide 21 mmol/L (22-29); Chloride 111 mmol/L (98-107); Estimated GFR-MDRD 90; Glucose 89 mg/dL (70-105); Potassium 3.5 mmol/L (3.5-5.1); Sodium 141 mmol/L (136-145)
[2020-04-12] MEDS: Enoxaparin Sodium 40 MG/0.4 ML SYRINGE SC SCH (07:51)
[2020-04-12] MEDS: Famotidine 20 MG TAB PO SCH ×2 (07:51→20:01)
[2020-04-12] MEDS: Famotidine/PF 20 mg/2ml Vial SLOW IVP SCH ×2 (07:52→20:09)
[2020-04-12] MEDS ORDERED: Ciprofloxacin 500 MG TAB PO SCH (08:15)
[2020-04-12] MEDS: Ketorolac Tromethamine 30 MG/ML VIAL IVP PRN (08:45)
[2020-04-12] MEDS: Sodium Chloride 0.9% 1,000 ML IV SCH ×4 (08:46→20:37)
[2020-04-12] MEDS: Acetaminophen 325 MG TAB PO PRN (17:00)
--- NOTE | 2020-04-12 17:00 | PDOC.HOSPP ---
- Subjective Encounter Date: 04/12/20 Encounter Time: 09:40 Subjective: Pt seen for followup for pyelonephritis. Feels better. - Objective Vital Signs & Weight: Vital Signs (12 hours) Temp Pulse Resp BP Pulse Ox 04/12/20 07:38 98.6 F 80 18 116/75 98 Weight Weight 258 lb 9.6 oz I&O: 04/11/20 04/12/20 04/13/20 06:59 06:59 06:59 Intake Total 4380 Balance 4380 Result Diagrams: 04/12/20 05:01 04/12/20 05:01 Additional Labs: Labs and MARs reviewed by la Hospitalist ROS - Review of Systems Cardiovascular: denies: chest pain, palpitations, orthopnea, paroxysmal noc. dyspnea, edema, light headedness Gastrointestinal: reports: abdominal pain. denies: nausea, vomiting, diarrhea, constipation, melena, hematochezia - Medication Medications: Active Medications Generic Name Dose Route Start Last Admin Trade Name Freq PRN Reason Stop Dose Admin Acetaminophen 650 mg 04/11/20 00:51 04/11/20 23:28 Tylenol PO 650 mg Q4H PRN Administration Headache/Fever/Mild Pain (1-3) Enoxaparin Sodium 40 mg 04/11/20 09:00 04/12/20 07:51 Lovenox SC 40 mg 0900 NUBIA Administration Famotidine 20 mg 04/11/20 09:00 04/12/20 07:52 Pepcid SLOW IVP Not Given Q12HR NUBIA Famotidine 20 mg 04/11/20 09:00 04/12/20 07:51 Pepcid PO 20 mg BID NUBIA Administration Sodium Chloride 1,000 mls @ 100 mls/hr 04/11/20 01:00 04/12/20 09:13 Normal Saline 0.9% IV Not Given .Q10H NUBIA Ketorolac Tromethamine 30 mg 04/11/20 00:56 04/12/20 08:45 Toradol IVP 04/16/20 00:57 30 mg Q6H PRN Administration Pain Sodium Chloride 10 ml 04/11/20 00:51 04/11/20 08:53 Flush - Normal Saline IVF 10 ml Q12HR PRN Administration Saline Flush - Exam General - other findings: Morbid obesity Eye: anicteric sclera ENT: moist mucosa Neck: supple, symmetric, no thyromegaly Heart: RRR, no gallops, no rubs Respiratory: CTAB Gastrointestinal: soft Gastrointestinal - other findings: R CVA tenderness, mild Skin: no rashes Psychiatric: normal affect, normal behavior Hosp A/P (1) Pyelonephritis Code(s): N12 - TUBULO-INTERSTITIAL NEPHRITIS, NOT SPCF ACUTE OR CHRONIC Status: Acute (2) Morbid obesity Code(s): E66.01 - MORBID (SEVERE) OBESITY DUE TO EXCESS CALORIES Status: Chronic (3) Hypokalemia Code(s): E87.6 - HYPOKALEMIA Status: Resolved - Plan continue antibiotics, out of bed/ambulate Switch to oral ciprofloxacin. Hypokalemia resolved. Likely home 24-48h
[2020-04-12] MEDS: Ciprofloxacin 500 MG TAB PO SCH (20:02)
[2020-04-13] MEDS: Sodium Chloride 0.9% 1,000 ML IV SCH ×2 (01:33→06:00)
[2020-04-13 05:49] LABS: #Eosinphils 0.1 thou/uL (0.0-0.7); #Lymphocytes 1.4 thou/uL (1.20-3.40); #Monocytes 0.4 thou/uL (0.11-0.59); #Neutrophils 1.9 thou/uL (1.40-6.50); %Basophils 0.1 % (0.0-1.0); %Eosinophils 1.6 % (0.0-10.0); %Lymphocytes 37.6 % (21.0-51.0); %Monocytes 10.9 % (0.0-10.0); %Neutrophils 49.8 % (42.0-75.0); Mean Corpuscular HGB CONC 33.2 g/dL (32.0-36.0); Mean Corpuscular Hemoglobin 29.5 pg (27.0-31.0); Mean Corpuscular Volume 88.7 fL (78.0-98.0); Mean Platelet Volume 8.9 fL (7.4-10.4); Platelet Count 130 thou/uL (130-400); Red Blood Cell (RBC) Count 3.75 mill/uL (4.20-5.40); White Blood Cell (WBC) Count 3.8 thou/uL (4.8-10.8)
[2020-04-13] MEDS: Ciprofloxacin 500 MG TAB PO SCH (05:57)
[2020-04-13 06:08] LABS: Anion Gap 9 mmol/L (10-20); BUN (Urea Nitrogen) 4 mg/dL (7.0-18.7); Calc. Creatinine Clearance 216 mL/min (70-130); Calcium 7.8 mg/dL (7.8-10.44); Carbon Dioxide 23 mmol/L (22-29); Chloride 111 mmol/L (98-107); Estimated GFR-MDRD Greater than 90; Glucose 87 mg/dL (70-105); Sodium 140 mmol/L (136-145)
[2020-04-13] MEDS: Potassium Chloride 20 MEQ TAB PO SCH ×2 (09:50→13:22)
[2020-04-13] MEDS: Enoxaparin Sodium 40 MG/0.4 ML SYRINGE SC SCH (09:50)
[2020-04-13] MEDS: Famotidine 20 MG TAB PO SCH (09:50)
[2020-04-13 11:10] VITALS: BP 125/87; TEMP 98
--- NOTE | 2020-04-14 03:21 | DIS ---
DATE OF ADMISSION: 04/11/2020 DATE OF DISCHARGE: 04/13/2020 PRIMARY CARE PROVIDER: Juno Whitley MD DISCHARGE DIAGNOSES: 1. Sepsis. 2. Pyelonephritis. 3. Hypokalemia. CONDITION OF PATIENT ON THE DAY OF DISCHARGE: Stable. I assessed Ms. Rodríguez on the day of discharge. She denies any chest pain or shortness of breath. Vital signs are stable. S1 and S2 are heard, regular. Lungs are clear to auscultation bilaterally. HOSPITAL COURSE: Ms. Rodríguez is a pleasant 34-year-old lady, who was admitted to [facility] for sepsis secondary to pyelonephritis on April 11, 2020. Urine cultures grew Escherichia coli that was resistant to ampicillin and ampicillin/sulbactam, but was otherwise pansensitive. She was treated initially with intravenous ceftriaxone, subsequently switched to oral ciprofloxacin. She continued to improve clinically and is being discharged home in a stable condition. POST-ACUTE CARE FOLLOWUP: With primary care provider in 3 days. ACTIVITY: No restrictions. DIET: Regular. DISCHARGE MEDICATIONS: Ciprofloxacin 500 mg 2 times a day for 12 more days. DISCHARGE DESTINATION: Home. TIME SPENT: Total amount of time spent coordinating this discharge: 20 minutes. Job ID: [id number]
== END 2020-04-13 14:35 | disposition home or self-care (01) | DRG 872 ==
LOC: ERS 20:33 → T4-B 04-11 00:03
PROVIDERS: ADMIT Internal Medicine; ATTEND Internal Medicine
DX: A41.51 Sepsis due to Escherichia coli [E. coli] (principal); N10 Acute pyelonephritis; Z16.11 Resistance to penicillins; E87.6 Hypokalemia; Z90.49 Acquired absence of other specified parts of digestive tract; Z88.5 Allergy status to narcotic agent; Z91.041 Radiographic dye allergy status; Z91.013 Allergy to seafood
CPT/HCPCS: 36415; 80048; 80053; 81003; 81015; 81025; 83605; 83690; 83735; 85025; 87040; 87077; 87086; 87186; 96365; 96366; 96368; 96375; J0696; J1650; J1885; J2405; J3370; J3480; J3490; S0028

== ENCOUNTER 2021-03-13 11:31 | Emergency (ER) | payer SELFPAY ==
[2021-03-13] MEDS ORDERED: Ketorolac Tromethamine 30 MG/ML VIAL ONE (12:44)
== END 2021-03-13 13:01 | disposition home or self-care (01) ==
LOC: ERS 11:31
DX: S80.01XA Contusion of right knee, initial encounter (principal); W11.XXXA Fall on and from ladder, initial encounter
CPT/HCPCS: 96372; J1885

== ENCOUNTER 2022-04-02 14:42 | Emergency (ER) | payer SELFPAY ==
[~2022-04-02 14:42] MED LIST changes: -Dexamethasone 20 MG/5 ML VIAL ONE; -Glycopyrrolate 0.2 MG/ML 5 ML SYRINGE ONE; +Iopamidol-370 76% 500 ML 1 ML ONE; -Lidocaine 1% PF 5 ML VIAL ONE; -Ondansetron PF 4 MG/2 ML Vial ONE; -PROPOFOL 200 MG/20 ML VIAL ONE; -Rocuronium Bromide 10 MG/ML (10ML VIAL) ONE
[2022-04-02 15:12] LABS: #Eosinphils 0.1 thou/uL (0.0-0.7); #Lymphocytes 1.4 thou/uL (1.20-3.40); #Monocytes 0.6 thou/uL (0.11-0.59); #Neutrophils 5.5 thou/uL (1.40-6.50); %Basophils 0.3 % (0.0-1.0); %Eosinophils 1.4 % (0.0-10.0); %Lymphocytes 18.4 % (21.0-51.0); %Monocytes 7.8 % (0.0-10.0); %Neutrophils 72.1 % (42.0-75.0); Hemoglobin 14.6 g/dL (12.0-16.0); Mean Corpuscular HGB CONC 32.2 g/dL (32.0-36.0); Mean Corpuscular Volume 89.9 fL (78.0-98.0); Mean Platelet Volume 8.1 fL (7.4-10.4); Platelet Count 157 thou/uL (130-400); RBC Distribution Width 12.5 % (11.5-14.5); Red Blood Cell (RBC) Count 5.05 mill/uL (4.20-5.40); White Blood Cell (WBC) Count 7.6 thou/uL (4.8-10.8)
[2022-04-02 15:20] LABS: BHCG - Serum Negative (NEGATIVE); Pregs Control Background? CLEAR/WHITE (CLR/WHITE); Pregs Control Bar Appear? YES (CONTROL BAR)
[2022-04-02] MEDS ORDERED: Ondansetron ODT 4 MG TAB ONE (15:26)
[2022-04-02 15:30] LABS: ALT (SGPT) Less than 7 U/L (8-55); AST (SGOT) 9 U/L (5-34); Albumin 4.2 g/dL (3.5-5.0); Alkaline Phosphatase 64 U/L (40-110); Anion Gap 13 mmol/L (10-20); BUN (Urea Nitrogen) 5 mg/dL (7.0-18.7); Bilirubin, Total 0.9 mg/dL (0.2-1.2); Calc. Creatinine Clearance 0 mL/min (70-130); Calcium 9.1 mg/dL (7.8-10.44); Carbon Dioxide 20 mmol/L (22-29); Chloride 107 mmol/L (98-107); Globulin 2.9 g/dL (2.4-3.5); Glucose 95 mg/dL (70-105); Lipase 8 U/L (8-78); Potassium 3.7 mmol/L (3.5-5.1); Protein, Total 7.1 g/dL (6.0-8.3); Sodium 136 mmol/L (136-145)
[2022-04-02] MEDS ORDERED: Metoclopramide 10 MG/10 ML UDCUP ONE (15:41)
[2022-04-02] MEDS ORDERED: Metoclopramide HCl 10 MG/2 ML VIAL ONE (15:42)
[2022-04-02] MEDS ORDERED: methylPREDNISolone Sod Succ 40 MG VIAL ONE (15:49)
[2022-04-02] MEDS ORDERED: Famotidine/PF 20 mg/2ml Vial ONE (15:49)
[2022-04-02] MEDS ORDERED: diphenhydrAMINE 50 MG/ML VIAL ONE (15:49)
== END 2022-04-02 18:58 | disposition home or self-care (01) ==
LOC: ERS 14:42
DX: R11.2 Nausea with vomiting, unspecified (principal); N83.201 Unspecified ovarian cyst, right side; E66.9 Obesity, unspecified; F17.210 Nicotine dependence, cigarettes, uncomplicated
CPT/HCPCS: 36415; 74177; 80053; 83690; 84703; 85025; 96361; 96374; 96375; J1200; J2765; J2920; Q0162; S0028

== ENCOUNTER 2022-06-07 18:03 | Emergency (ER) | payer SELFPAY ==
[2022-06-07] MEDS ORDERED: Ondansetron ODT 4 MG TAB ONE (19:45)
[2022-06-07 20:17] LABS: Pregnancy Test - Urine (BHCG) Negative (Negative); Pregu Control Background? CLEAR/WHITE (CLR/WHITE); Pregu Control Bar Appear? YES (CONTROL BAR)
== END 2022-06-07 20:50 | disposition home or self-care (01) ==
LOC: ERS 18:03
DX: R11.2 Nausea with vomiting, unspecified (principal); E66.9 Obesity, unspecified; F17.210 Nicotine dependence, cigarettes, uncomplicated
CPT/HCPCS: 81025; 99284; Q0162

== ENCOUNTER 2023-11-14 08:02 | Emergency (ER) | payer BC, OTHER ==
[2023-11-14] MEDS ORDERED: Ketorolac Tromethamine 30 MG (1 mL) VIAL ONE (08:18)
[2023-11-14] MEDS ORDERED: Cyclobenzaprine 10 MG TAB ONE (08:18)
[2023-11-14] MEDS ORDERED: prednisoLONE 10 MG ODT TAB ONE ×2 (08:18→08:27)
[2023-11-14] MEDS ORDERED: predniSONE 20 MG TAB ONE (08:28)
== END 2023-11-14 08:52 | disposition home or self-care (01) ==
LOC: ERS 08:02
DX: M54.50 Low back pain, unspecified (principal)
CPT/HCPCS: 96372; 99283; J1885; J7512

== ENCOUNTER 2023-12-03 17:43 | Emergency (ER) | payer BC ==
[2023-12-03] MEDS ORDERED: Acetaminophen 500 MG TAB ONE (18:40)
[2023-12-03 18:48] LABS: Amphetamine Not Detected (NotDetected); Barbiturates Screen Not Detected (NotDetected); Benzodiazepine Screen Not Detected (NotDetected); Cocaine Metabolite Screen Not Detected (NotDetected); Methadone Not Detected (NotDetected); Methamphetamine Not Detected (NotDetected); Opiate Screen Not Detected (NotDetected); Oxycodone Screen Not Detected (NotDetected); Phencyclidine (PCP) Not Detected (NotDetected); THC/Cannabinoid Screen Detected (NotDetected); Tricyclic Screen Not Detected (NotDetected)
[2023-12-03 19:00] LABS: Bacteria/HPF 4+ HPF (None Seen); Bilirubin Negative (Negative); Blood, Urine Negative (Negative); CAUTI Indications for Culture Alt mental st,lethar; Clarity Clear (Clear); Glucose, Urine (Dipstick) Normal (Negative); Ketone, Urine Negative (Negative); Leukocyte Negative Leu/uL (Negative); Nitrite 1+ (Negative); Protein, Urine (Dipstick) 70 mg/dL (Neg-Trace); RBC/HPF 0-3 HPF (0-3); Specific Gravity, Urine 1.025 (1.002-1.036); Squamous Epithelial 0-3 HPF (0-3); Urobilinogen Normal mg/dL (Less than 2); WBC/HPF 0-3 HPF (0-3); pH, Urine 8.5 (5.0-9.0)
[2023-12-03 19:04] LABS: Urine Culture Reflex No No
[2023-12-03 19:20] LABS: #Monocytes 0.6 thou/uL (0.11-0.59); %Basophils 0.2 % (0.0-1.0); %Eosinophils 0.1 % (0.0-10.0); %Lymphocytes 2.2 % (21.0-51.0); %Monocytes 3.5 % (0.0-10.0); %Neutrophils 93.4 % (42.0-75.0); Hematocrit 39.3 % (36.0-47.0); Hemoglobin 12.8 g/dL (12.0-16.0); Mean Corpuscular HGB CONC 32.6 g/dL (32.0-36.0); Mean Corpuscular Hemoglobin 28.2 pg (27.0-31.0); Mean Corpuscular Volume 86.6 fl (78.0-98.0); Mean Platelet Volume 10.1 fL (7.4-10.4); Platelet Count 192 10x3/uL (130-400); RBC Distribution Width 12.7 % (11.5-14.5); Red Blood Cell (RBC) Count 4.54 mill/uL (4.20-5.40); White Blood Cell (WBC) Count 18.2 10x3/uL (4.8-10.8)
[2023-12-03 19:48] LABS: BHCG - Serum Negative (NEGATIVE); Pregs Control Background? CLEAR/WHITE (CLR/WHITE); Pregs Control Bar Appear? YES (CONTROL BAR)
[2023-12-03 19:50] LABS: Troponin I Less than 0.010 ng/mL (< 0.028)
[2023-12-03 20:06] LABS: ALT (SGPT) Less than 7 U/L (8-55); AST (SGOT) 11 U/L (5-34); Albumin 4.1 g/dL (3.5-5.0); Alkaline Phosphatase 69 U/L (40-110); Anion Gap 12 mmol/L (10-20); BUN (Urea Nitrogen) 8 mg/dL (7.0-18.7); Calc. Creatinine Clearance 0 mL/min (70-130); Calcium 9.1 mg/dL (7.8-10.44); Carbon Dioxide 23 mmol/L (22-29); Chloride 107 mmol/L (98-107); Estimated GFR 106; Globulin 2.6 g/dL (2.4-3.5); Glucose 114 mg/dL (70-105); Lipase 4 U/L (8-78); Potassium 3.5 mmol/L (3.5-5.1); Protein, Total 6.7 g/dL (6.0-8.3); Sodium 138 mmol/L (136-145)
== END 2023-12-03 21:10 | disposition home or self-care (01) ==
LOC: ERS 17:43
DX: R55 Syncope and collapse (principal); R11.2 Nausea with vomiting, unspecified
CPT/HCPCS: 36415; 71045; 74176; 80053; 80306; 81001; 83690; 84484; 84703; 85025; 93005; 96360; 96361

== ENCOUNTER 2024-04-06 09:32 | Emergency (ER) | payer BC ==
[2024-04-06] MEDS ORDERED: Ketorolac Tromethamine 30 MG (1 mL) VIAL ONE (10:00)
== END 2024-04-06 10:23 | disposition home or self-care (01) ==
LOC: ERS 09:32
DX: M54.41 Lumbago with sciatica, right side (principal)
CPT/HCPCS: 96372; 99282; J1885

== ENCOUNTER 2024-04-07 11:03 | Emergency (ER) | payer BC ==
[2024-04-07] MEDS ORDERED: Ondansetron PF 4 MG/2 ML Vial ONE (12:37)
[2024-04-07] MEDS ORDERED: Ketorolac Tromethamine 30 MG (1 mL) VIAL ONE ×2 (12:57→15:53)
[2024-04-07] MEDS ORDERED: Pantoprazole 40 MG VIAL ONE (12:58)
[2024-04-07 13:02] LABS: #Basophils Less than 0.03 10x3/uL (0.0-0.2); #Eosinphils Less than 0.03 10x3/uL (0.0-0.7); %Basophils 0.1 % (0.0-1.0); %Lymphocytes 7.3 % (21.0-51.0); %Monocytes 4.7 % (0.0-10.0); %Neutrophils 87.1 % (42.0-75.0); Hematocrit 48.1 % (36.0-47.0); Hemoglobin 15.7 g/dL (12.0-16.0); Mean Corpuscular HGB CONC 32.6 g/dL (32.0-36.0); Mean Corpuscular Hemoglobin 27.7 pg (27.0-31.0); Mean Corpuscular Volume 84.8 fL (78.0-98.0); Mean Platelet Volume 10.6 fL (7.4-10.4); Platelet Count 283 10x3/uL (130-400); RBC Distribution Width 13.6 % (11.5-14.5); Red Blood Cell (RBC) Count 5.67 mill/uL (4.20-5.40)
[2024-04-07 13:22] LABS: ALT (SGPT) 10 U/L (8-55); AST (SGOT) 14 U/L (5-34); Albumin 4.6 g/dL (3.5-5.0); Alkaline Phosphatase 71 U/L (40-110); Anion Gap 17 mmol/L (10-20); BUN (Urea Nitrogen) 12 mg/dL (7.0-18.7); Bilirubin, Total 0.9 mg/dL (0.2-1.2); CK (CPK) 53 U/L (29-168); Calc. Creatinine Clearance 0 mL/min (70-130); Calcium 10.4 mg/dL (7.8-10.44); Carbon Dioxide 22 mmol/L (22-29); Chloride 106 mmol/L (98-107); Estimated GFR 81; Globulin 3.4 g/dL (2.4-3.5); Glucose 146 mg/dL (70-105); Potassium 3.8 mmol/L (3.5-5.1); Sodium 141 mmol/L (136-145)
[2024-04-07] MEDS ORDERED: Metoclopramide HCl 10 MG (2 mL) VIAL ONE (14:48)
[2024-04-07 18:04] LABS: Bacteria/HPF None Seen HPF (None Seen); Bilirubin Negative (Negative); Blood, Urine 1+ (Negative); CAUTI Indications for Culture Dysuria,urgency,freq; Clarity Turbid (Clear); Glucose, Urine (Dipstick) 50 mg/dL (Negative); Ketone, Urine Trace mg/dL (Negative); Leukocyte Negative Leu/uL (Negative); Nitrite Negative (Negative); Pregnancy Test - Urine (BHCG) Negative (Negative); Protein, Urine (Dipstick) 50 mg/dL (Neg-Trace); RBC/HPF 0-3 HPF (0-3); Specific Gravity 1.034 (1.002-1.036); Specific Gravity, Urine 1.034 (1.002-1.036); Squamous Epithelial 0-3 HPF (0-3); Urobilinogen Normal mg/dL (Less than 2); WBC/HPF 0-3 HPF (0-3); pH, Urine 5.5 (5.0-9.0)
[2024-04-07 18:05] LABS: Pregu Control Background? CLEAR/WHITE (CLR/WHITE); Pregu Control Bar Appear? YES (CONTROL BAR)
[2024-04-07 18:06] LABS: Urine Culture Reflex No No
== END 2024-04-07 19:42 | disposition home or self-care (01) ==
LOC: ERS 11:03
DX: R11.2 Nausea with vomiting, unspecified (principal); E86.0 Dehydration; K29.70 Gastritis, unspecified, without bleeding; M79.604 Pain in right leg
CPT/HCPCS: 36415; 80053; 81001; 81025; 82550; 85025; 96374; 96375; 96376; C9113; J1885; J2405; J2765

== ENCOUNTER 2024-05-27 16:33 | Emergency (ER) | payer BC, OTHER, SELFPAY ==
[2024-05-27] MEDS ORDERED: Ketorolac Tromethamine 30 MG (1 mL) VIAL ONE (17:43)
[2024-05-27] MEDS ORDERED: Dexamethasone 10 MG/ML VIAL ONE (17:47)
[2024-05-27 18:32] LABS: Pregnancy Test - Urine (BHCG) Negative (Negative); Specific Gravity 1.015 (1.002-1.036)
[2024-05-27 18:33] LABS: Pregu Control Background? CLEAR/WHITE (CLR/WHITE); Pregu Control Bar Appear? YES (CONTROL BAR)
== END 2024-05-27 18:13 | disposition home or self-care (01) ==
LOC: ERS 16:33
DX: M54.31 Sciatica, right side (principal); F17.210 Nicotine dependence, cigarettes, uncomplicated; Z75.3 Unavailability and inaccessibility of health-care facilities
CPT/HCPCS: 81025; 96372; 99283; J1100; J1885